=== PATIENT | female | born 1985 | race African-American/Black ===

== ENCOUNTER 2024-04-09 21:58 | Emergency (ER) | payer BC ==
[2024-04-09 22:09] VITALS: BP 139/86; PULSE 73; RESP 16; TEMP 98.2; BMI 34.0
== END 2024-04-09 23:38 | disposition home or self-care (01) ==
LOC: FER 21:58
DX: F10.929 Alcohol use, unspecified with intoxication, unspecified (principal)
CPT/HCPCS: 99283-25